=== PATIENT | male | born 1995 | race Caucasian/White ===

== ENCOUNTER 2022-02-10 08:36 | Emergency (ER) | payer MEDICAID ==
[~2022-02-10] VITALS: Ht 188 cm; Wt 125.0 kg
[2022-02-10 08:39] VITALS: BP 156/84
== END 2022-02-10 09:50 | disposition home or self-care (01) ==
LOC: ER 08:36
DX: N50.89 Other specified disorders of the male genital organs (principal)
CPT/HCPCS: 99281